=== PATIENT | male | born 1995 | race Two or more races ===

== ENCOUNTER 2020-02-06 16:33 | Emergency (ER) | payer BC, OTHER ==
[~2020-02-06] VITALS: Ht 177.8 cm; Wt 97.5 kg
[2020-02-06 21:33] VITALS: BP 137/79
== END 2020-02-06 22:36 | disposition home or self-care (01) ==
LOC: ER 16:40
DX: S43.401A Unspecified sprain of right shoulder joint, initial encounter (principal); F17.210 Nicotine dependence, cigarettes, uncomplicated; V49.9XXA Car occupant (driver) (passenger) injured in unspecified traffic accident, initial encounter; Y93.89 Activity, other specified; Y92.89 Other specified places as the place of occurrence of the external cause; Y99.8 Other external cause status
CPT/HCPCS: 73030